=== PATIENT | female | born 1990 | race Two or more races ===

== ENCOUNTER 2024-11-20 14:12 | Emergency (ER) | payer OTHER ==
[~2024-11-20] VITALS: Ht 182.9 cm; Wt 113.4 kg
[2024-11-20] MEDS ORDERED: PRENATABS RX T1 EACH (14:47)
[2024-11-20] MEDS ORDERED: DICLEGIS DR 101 EACH PO (14:48)
[2024-11-20 16:34] LABS: BASO % 0.3 % (0.1-1.2); EOS # 0.16 (0.04-0.54); EOS % 1.7 % (0.7-7.0); HEMATOCRIT 34.7 % (34.1-44.9); HEMOGLOBIN 11.9 g/dL (11.2-15.7); LYMPH # 2.19 (1.18-3.74); LYMPH % 23.4 % (19.3-53.1); MEAN CORPUSCULAR HEMOGLOBIN 29.4 pg (25.6-32.2); MONO # 0.47 (0.24-0.82); NEUT # 6.48 (1.56-6.13); NEUT % 69.4 % (34.0-71.1); PLATELET COUNT 300 K/uL (163-369); RED BLOOD COUNT 4.05 M/uL (3.93-5.22); RED CELL DISTRIBUTION WIDTH 13.5 % (11.6-14.4)
== END 2024-11-20 20:48 ==
LOC: ER 14:39
PROVIDERS: General Practice
DX: O20.8 Other hemorrhage in early pregnancy (principal); R10.2 Pelvic and perineal pain; Z3A.13 13 weeks gestation of pregnancy; Z91.013 Allergy to seafood; Z91.040 Latex allergy status; Z88.8 Allergy status to other drugs, medicaments and biological substances

== ENCOUNTER 2025-05-21 10:15 | Inpatient (IN) | payer OTHER ==
[~2025-05-21] VITALS: Ht 182.9 cm; Wt 3.6 kg
[~2025-05-21 10:15] MED LIST: DICLEGIS DR 101 EACH PO; PRENATABS RX T1 EACH
[2025-05-21 13:11] LABS: URINE APPEARANCE Cloudy; URINE BILIRRUBIN Negative (NEGATIVE); URINE BLOOD Negative; URINE COLOR Yellow; URINE GLUCOSE Negative (NEGATIVE); URINE KETONE 15 (NEGATIVE); URINE LEUKOCYTE Trace; URINE NITRATE Negative; URINE PROTEIN Negative (NEGATIVE); URINE UROBILINOGEN 0.2 E.U./dl
[2025-05-21 13:15] LABS: BASO % 0.3 % (0.1-1.2); EOS # 0.09 (0.04-0.54); EOS % 0.9 % (0.7-7.0); LYMPH # 2.08 (1.18-3.74); LYMPH % 20.9 % (19.3-53.1); MEAN PLATELET VOLUME 10.00 fl (9.4-12.4); MONO # 0.46 (0.24-0.82); MONO % 4.6 % (4.7-12.5); NEUT # 7.23 (1.56-6.13); NEUT % 72.7 % (34.0-71.1); RED CELL DISTRIBUTION WIDTH 15.7 % (11.6-14.4)
[2025-05-21 13:17] LABS: URINE EPITHELIAL CELLS 19.8 uL (0.0-38.8); URINE RBC 11.1 uL (0.0-20.8); URINE WBC 126.7 uL (0.0-23.2)
[2025-05-21 13:31] LABS: INR < 0.93
[2025-05-21 13:42] LABS: TYPE CELLS SQUAMOUS; URINE CAST 0.58 uL (0.0-1.40); URINE MUCUS SCANT
[2025-05-26 10:55] VITALS: BP 109/70
[2025-05-26] MEDS ORDERED: OXYTOCIN 10 UNITS/ML VIAL ONE ×3 (11:41→16:40)
[2025-05-26] MEDS ORDERED: ERYTHROMYCIN BASE OPHT 1GM EACH TUBE OP ONE (11:41)
[2025-05-26] MEDS ORDERED: CEFOXITIN SODIUM 2,000 MG VIAL IV ONE (12:30)
[2025-05-26] MEDS ORDERED: KETOROLAC TROMETHAMINE 60 MG VIAL IM STA (14:53)
[2025-05-26] MEDS ORDERED: CHLORHEXIDINE GLUCONATE 120 ML BOTTLE TP SCH (15:00)
[2025-05-26] MEDS ORDERED: PROMETHAZINE HCL 25 MG/ML AMPUL IM PRN (15:00)
[2025-05-26] MEDS ORDERED: OXYTOCIN 1,000 ML IV SCH (15:00)
[2025-05-26] MEDS ORDERED: MORPHINE SULFATE 4 MG/ML VIAL IV PRN (15:00)
[2025-05-26] MEDS ORDERED: RINGERS SOLUTION,LACTATED 1,000 ML IV SCH (15:00)
[2025-05-26 16:47] LABS: BASO % 0.2 % (0.1-1.2); EOS # 0.02 (0.04-0.54); EOS % 0.2 % (0.7-7.0); LYMPH # 1.76 (1.18-3.74); LYMPH % 15.1 % (19.3-53.1); MEAN PLATELET VOLUME 9.60 fl (9.4-12.4); MONO # 0.33 (0.24-0.82); MONO % 2.8 % (4.7-12.5); NEUT # 9.43 (1.56-6.13); NEUT % 81.2 % (34.0-71.1); RED CELL DISTRIBUTION WIDTH 15.6 % (11.6-14.4)
[2025-05-26 17:10] VITALS: BP 121/76
[2025-05-27 01:36] VITALS: BP 99/64
[2025-05-27 03:00] VITALS: BP 96/65
[2025-05-27 08:00] VITALS: BP 101/64
[2025-05-27] MEDS ORDERED: OxyCODONE HCL 5 MG TABLET (ROXICODONE) PO PRN (09:00)
[2025-05-27] MEDS ORDERED: ACETAMINOPHEN 325 MG TABLET PO PRN (09:00)
[2025-05-27 16:05] VITALS: BP 94/64
[2025-05-28] VITALS: BP 90/61
[2025-05-28 08:00] VITALS: BP 90/61
[2025-05-28 09:37] VITALS: BP 95/64
[2025-05-29 00:05] VITALS: BP 100/68
[2025-05-29 09:06] VITALS: BP 107/72
[2025-05-29] MEDS ORDERED: OxyCODONE HCL 5 MG TABLET (ROXICODONE) PO ONE (10:15)
== END 2025-05-29 16:54 | disposition home or self-care (01) | DRG 785 ==
LOC: OB/GYN 05-26 10:15 → LDR 05-26 11:25 → O/R 05-26 11:25 → OB/GYN 05-26 15:31
PROVIDERS: ADMIT Obstetrics & Gynecology; ATTEND Obstetrics & Gynecology
PROC: 0UB70ZZ Excision of Bilateral Fallopian Tubes, Open Approach (ICD-10-PCS; 2025-05-26)
PROC: 4A1HXCZ Monitoring of Products of Conception, Cardiac Rate, External Approach (ICD-10-PCS; 2025-05-26)
PROC: 10D00Z1 Extraction of Products of Conception, Low, Open Approach (ICD-10-PCS; principal; 2025-05-26 12:30)
DX: O34.211 Maternal care for low transverse scar from previous cesarean delivery (principal); Z30.2 Encounter for sterilization; Z37.0 Single live birth; Z3A.39 39 weeks gestation of pregnancy